=== PATIENT | female | born 1965 | race African-American/Black ===

== ENCOUNTER 2019-03-23 20:01 | Emergency (ER) | payer BC, OTHER ==
[2019-03-23] MEDS ORDERED: diphenhydrAMINE 50 MG/ML VIAL ONE (20:24)
[2019-03-23] MEDS ORDERED: Metoclopramide HCl 10 MG/2 ML VIAL ONE (20:24)
[2019-03-23] MEDS ORDERED: Sodium Chloride 0.9% 1,000 ML ONE (20:24)
[2019-03-23 20:50] LABS: Band 1 % (5-11); Eosinophils 6 % (0-10); Hemoglobin 11.6 g/dL (12.0-16.0); Lymphocytes 58 % (21-51); MDiff Complete? YES; Mean Corpuscular HGB CONC 31.4 g/dL (32.0-36.0); Mean Corpuscular Hemoglobin 28.1 pg (27.0-31.0); Mean Corpuscular Volume 89.5 fL (78.0-98.0); Mean Platelet Volume 7.9 fL (7.4-10.4); Monocytes 6 % (0-10); Neutrophil 29 % (42-75); Platelet Count 338 thou/uL (130-400); Platelet Morphology Comment Appears Adequate; RBC Distribution Width 13.4 % (11.5-14.5); RBC Morphology Normal; Red Blood Cell (RBC) Count 4.12 mill/uL (4.20-5.40); White Blood Cell (WBC) Count 5.5 thou/uL (4.8-10.8)
[2019-03-23 20:56] LABS: ALT (SGPT) 15 U/L (8-55); AST (SGOT) 19 U/L (5-34); Albumin 3.8 g/dL (3.5-5.0); Alkaline Phosphatase 78 U/L (40-110); Anion Gap 15 mmol/L (10-20); BUN (Urea Nitrogen) 9 mg/dL (9.8-20.1); Bilirubin, Total 0.2 mg/dL (0.2-1.2); CK (CPK) 226 U/L (29-168); Calc. Creatinine Clearance 0 mL/min (70-130); Calcium 10.1 mg/dL (7.8-10.44); Carbon Dioxide 24 mmol/L (22-29); Chloride 104 mmol/L (98-107); Estimated GFR-MDRD Greater than 90; Globulin 4.2 g/dL (2.4-3.5); Glucose 84 mg/dL (70-105); Potassium 3.8 mmol/L (3.5-5.1); Sodium 139 mmol/L (136-145)
== END 2019-03-23 22:50 | disposition home or self-care (01) ==
LOC: NAV ERS 20:01
DX: I10 Essential (primary) hypertension (principal); F32.9 Major depressive disorder, single episode, unspecified; F17.210 Nicotine dependence, cigarettes, uncomplicated
CPT/HCPCS: 80053; 82550; 84484; 85025; 93005; 96360; 96365; 96366; 96375; J1200; J2765; J7050

== ENCOUNTER 2020-05-02 08:05 | Emergency (ER) | payer OTHER ==
[2020-05-02 23:54] LABS: SARS-CoV-2 MS2 Positive; SARS-CoV-2 N Gene Positive; SARS-CoV-2 S Gene Positive; SARS-CoV-2 by NAA DETECTED (NotDetected); SARS-CoV-2 orf1ab Positive
== END 2020-05-02 08:55 | disposition home or self-care (01) ==
LOC: NAV ERS 08:05
DX: U07.1 COVID-19 (principal); I10 Essential (primary) hypertension
CPT/HCPCS: 87635; 99283; U0003